=== PATIENT | male | born 1965 | race Hispanic/Latino ===

== ENCOUNTER 2020-11-11 10:08 | Day surgery (SDC) | payer OTHER ==
[2020-11-11] MEDS ORDERED: diphenhydrAMINE 50 MG/ML VIAL ONE (10:24)
[2020-11-11] MEDS ORDERED: Acetaminophen 500 MG TAB ONE (10:24)
== END 2020-11-11 13:00 | disposition home or self-care (01) ==
LOC: CSHSDC/OP 10:08
PROVIDERS: ATTEND Family Medicine
DX: U07.1 COVID-19 (principal); I10 Essential (primary) hypertension; J44.9 Chronic obstructive pulmonary disease, unspecified; E11.9 Type 2 diabetes mellitus without complications
CPT/HCPCS: J1200; J7050; M0243; Q0243